=== PATIENT | male | born 1975 | race Caucasian/White ===

== ENCOUNTER 2019-09-20 18:39 | Emergency (ER) | payer MEDICAID ==
--- NOTE | 2019-09-20 20:16 | CT ---
[id number] CT/CT Thoracic Spine WO IV EXAM: CT C-spine without contrast. INDICATION: Fall. COMPARISON: No previous similar exam is available for comparison. FINDINGS: No fracture or subluxation is seen. There is preservation of height of disc spaces and vertebrae. The pedicles are intact. The visualized soft tissues are unremarkable. No hematoma. Mild predominantly paraseptal emphysema. Otherwise, the visualized lungs are clear. IMPRESSION: 1. NO ACUTE FRACTURE OR SUBLUXATION. Agus Belle DO 09/20/192014 Thank you for allowing us to participate in the care of your patient.
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
--- NOTE | 2019-09-20 20:25 | CT ---
[id number] CT/CT Cervical Spine WO IV Exam: CT Cervical Spine WO IV CLINICAL DATA: FALL. COMPARISON: None. FINDINGS: No fracture or subluxation is seen. The C1-C2 articulation is unremarkable. The prevertebral soft tissues are within normal limits. Multilevel degenerative changes of the cervical spine including endplate osteophytosis and facet arthropathy. These findings are most pronounced at C5-C6 and C6-C7. IMPRESSION: NO ACUTE FRACTURE OR SUBLUXATION. Agus Belle DO 09/20/192023 Thank you for allowing us to participate in the care of your patient.
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
== END 2019-09-20 19:35 | disposition left against medical advice (07) ==
LOC: VM.ED 18:39
DX: S06.0X0A Concussion without loss of consciousness, initial encounter (principal); S16.1XXA Strain of muscle, fascia and tendon at neck level, initial encounter; F17.210 Nicotine dependence, cigarettes, uncomplicated; W01.0XXA Fall on same level from slipping, tripping and stumbling without subsequent striking against object, initial encounter
CPT/HCPCS: 70450; 72125; 72128; 99284-25